=== PATIENT | male | born 1990 | race American Indian/Alaskan Native ===

== ENCOUNTER 2018-09-21 14:35 | Inpatient (IN) | payer OTHER ==
--- NOTE | 2018-09-21 15:29 | Emergency Department Report ---
Chief Complaint: Sickle Cell Crisis Stated Complaint: SICKLE CELL/CHEST PAIN/DEHYDRATION Time Seen by Provider: 09/21/18 15:26 - HPI History of Present Illness: pt presents with "sickle cell crisis" pt presents with c/o right sided CP that began two days ago feels like a sharp pain radiating to the back also right arm pain (+) mild SOB also having diarrhea x 2 days no urinary sx, no fever last sickle cell crisis 4 months ago hasnt been transfused since childhood has not taken any medications in a year for sickle cell MSE screening note: Focused history and physical exam performed. Due to findings the following was ordered: EKG, CXR, labs ED Disposition for MSE Condition: Stable
[2018-09-21 16:13] LABS: Hematocrit 33.1 % (35.5-45.6); Hemoglobin 11.5 gm/dl (11.8-15.2); Mean Corpuscular HGB Conc 35 % (32-34); Mean Corpuscular Volume 86 fl (84-94); Platelet Count 308 K/mm3 (140-440); Red Blood Count 3.88 M/mm3 (3.65-5.03)
[2018-09-21 16:15] LABS: INR 1.05 (0.87-1.13); Partial Thromboplastin Time 33.8 Sec. (24.2-36.6)
[2018-09-21 16:54] LABS: Alanine Aminotransferase 7 units/L (7-56); Albumin 4.4 g/dL (3.9-5); BUN/Creatinine Ratio 17; Blood Urea Nitrogen 10 mg/dL (9-20); Hemolysis Index 27
[2018-09-21 16:58] LABS: Band Neutrophils # (Manual) 0.2 K/mm3; Basophils % (Manual) 0 % (0.0-1.8); Total Cells Counted 100
[2018-09-21 16:59] LABS: Anisocytosis 1+; Sickle Cells 1+; Target Cells 3+
[2018-09-21 17:00] LABS: Giant Platelets Few; Hypochromasia 1+; Platelet Estimate Consistent w Auto; Poikilocytosis 1+
--- NOTE | 2018-09-21 17:07 | XRay Report ---
PROCEDURE: XR CHEST ROUTINE 2V TECHNIQUE: PA and lateral chest radiographs were obtained. HISTORY: CP, hx of sickle cell COMPARISONS: None. FINDINGS: Heart: Normal. Mediastinum/Vessels: Normal. Lungs/Pleural space: No infiltrate, effusion, or pneumothorax. Bony thorax: No acute osseous abnormality. IMPRESSION: No pulmonary infiltrates are identified. This document is electronically signed by Monisha Yoder MD., September 21 2018 05:05:43 PM ET
[2018-09-21] MEDS ORDERED: ASPIRIN PO ONE (18:24)
[2018-09-21] MEDS ORDERED: NACL 0.9% 1000 ML 1,000 ML IV ONE (18:24)
[2018-09-21] MEDS ORDERED: DILAUDID IV ONE (18:24)
--- NOTE | 2018-09-21 18:26 | Emergency Department Report ---
ED Chest Pain HPI - General Chief Complaint: Sickle Cell Crisis Stated Complaint: SICKLE CELL/CHEST PAIN/DEHYDRATION Time Seen by Provider: 09/21/18 18:16 Source: patient Mode of arrival: Ambulatory Limitations: No Limitations - History of Present Illness Initial Comments: Patient is a 27-year-old male that presents emergent with complaints of chest pain 2 days. Patient states he's been dehydrated feeling. Patient denies shortness of breath. Patient states chest pain is a 10 out of 10. Patient states the chest pain is nonradiating. Patient states that the pain is better with rest and worse with movement and exertion. Patient states he has sickle cell and he feels like he is in sickle cell crisis MD Complaint: chest pain -: Sudden Onset: during rest Pain Location: substernal, left chest Pain Radiation: none Severity: severe Severity scale (0 -10): 10 Quality: sharp Consistency: constant Improves With: rest Worsens With: exertion, movement re: nausea. denies: vomting, diaphoresis, dyspnea, sense of impending doom Other Symptoms: denies: cough, fever, syncope, rash, acid taste in mouth, leg swelling, palpitations, burping Treatments Prior to Arrival: none Aspirin use within the Past 7 Days: (0) No - Related Data On Oral Contraceptives: No Allergies Allergy/AdvReac Type Severity Reaction Status Date / Time No Known Allergies Allergy Verified 09/21/18 20:59 Heart Score - HEART Score History: Slightly suspicious EKG: Normal Age: < 45 Risk factors: No known risk factors Troponin: < normal limit HEART Score: 0 ED Review of Systems ROS: Stated complaint: SICKLE CELL/CHEST PAIN/DEHYDRATION Other details as noted in HPI Constitutional: denies: chills, fever Eyes: denies: eye pain, eye discharge, vision change ENT: denies: ear pain, throat pain Respiratory: denies: cough, shortness of breath, wheezing Cardiovascular: chest pain. denies: palpitations Endocrine: no symptoms reported Gastrointestinal: denies: abdominal pain, nausea, diarrhea Genitourinary: denies: urgency, dysuria Musculoskeletal: denies: back pain, joint swelling, arthralgia Skin: denies: rash, lesions Neurological: denies: headache, weakness, paresthesias Psychiatric: denies: anxiety, depression Hematological/Lymphatic: denies: easy bleeding, easy bruising ED Past Medical Hx - Past Medical History Previous Medical History?: Yes Hx Sickle Cell Disease: Yes Hx Asthma: Yes - Surgical History Past Surgical History?: Yes Additional Surgical History: hernia, tonsils - Family History Family history: no significant - Social History Smoking Status: Current Every Day Smoker Substance Use Type: Alcohol, Marijuana ED Physical Exam - General Limitations: No Limitations General appearance: alert, in no apparent distress - Head Head exam: Present: atraumatic, normocephalic - Eye Eye exam: Present: normal appearance, PERRL Pupils: Present: normal accommodation - ENT ENT exam: Present: mucous membranes dry - Neck Neck exam: Present: normal inspection - Respiratory Respiratory exam: Present: normal lung sounds bilaterally. Absent: respiratory distress - Cardiovascular Cardiovascular Exam: Present: regular rate, normal rhythm. Absent: systolic murmur, diastolic murmur, rubs, gallop - GI/Abdominal GI/Abdominal exam: Present: soft, normal bowel sounds. Absent: distended, t enderness, guarding - Rectal Rectal exam: Present: deferred - Extremities Exam Extremities exam: Present: normal inspection - Back Exam Back exam: Present: normal inspection - Neurological Exam Neurological exam: Present: alert, oriented X3 - Psychiatric Psychiatric exam: Present: normal affect, normal mood - Skin Skin exam: Present: warm, dry, intact, normal color. Absent: rash ED Course Vital Signs 09/21/18 09/21/18 09/21/18 15:29 18:30 18:45 Temperature 98.7 F Pulse Rate 70 Respiratory 16 15 17 Rate Blood Pressure 141/70 Blood Pressure [Left] O2 Sat by Pulse 99 Oximetry 09/21/18 09/21/18 09/21/18 18:47 19:00 19:04 Temperature Pulse Rate 77 Respiratory 17 17 Rate Blood Pressure Blood Pressure 124/47 [Left] O2 Sat by Pulse 97 94 Oximetry 09/21/18 09/21/18 09/21/18 19:10 19:20 19:30 Temperature Pulse Rate Respiratory Rate Blood Pressure 112/48 112/48 Blood Pressure [Left] O2 Sat by Pulse 94 97 94 Oximetry 09/21/18 09/21/18 09/21/18 19:40 19:50 20:00 Temperature Pulse Rate Respiratory Rate Blood Pressure 124/46 113/51 118/50 Blood Pressure [Left] O2 Sat by Pulse 94 94 93 Oximetry 04/14/19 04/14/19 04/14/19 20:10 20:20 20:30 Temperature Pulse Rate Respiratory Rate Blood Pressure 118/50 123/62 115/48 Blood Pressure [Left] O2 Sat by Pulse 95 94 95 Oximetry 09/21/18 09/21/18 09/21/18 20:42 20:50 21:00 Temperature Pulse Rate Respiratory Rate Blood Pressure 123/62 135/53 123/58 Blood Pressure [Left] O2 Sat by Pulse 86 95 92 Oximetry 09/21/18 09/21/18 09/21/18 21:10 21:20 21:30 Temperature Pulse Rate Respiratory Rate Blood Pressure 123/58 121/56 123/58 Blood Pressure [Left] O2 Sat by Pulse 97 96 99 Oximetry 09/21/18 09/21/18 09/21/18 21:40 22:00 22:04 Temperature 98.6 F Pulse Rate 54 L 50 L Respiratory 16 Rate Blood Pressure 122/50 Blood Pressure 127/73 [Left] O2 Sat by Pulse 96 99 Oximetry - Reevaluation(s) Reevaluation #1: Discussed all results with patient. Patient will be admitted to the hospitalist service. Patient agrees with plan of care and admission. 09/21/18 18:27 - Consultations Consultation #1: 09/21/18 18:28 Hospitalist consult for admission. Hospitalist admit patient. STEPHANIE score - Stephanie Score Age > 65: (0) No Aspirin use within the Past 7 Days: (0) No 3 or more CAD Risk Factors: (0) No 2 or more Angina events in past 24 hrs: (0) No Known CAD with more than 50% Stenosis: (0) No Elevated Cardiac Markers: (0) No ST Deviation Greater than 0.5mm: (0) No STEPHANIE Score: 0 ED Medical Decision Making - Lab Data Result diagrams: 09/21/18 15:36 09/21/18 15:36 - EKG Data -: EKG Interpreted by Me EKG shows normal: sinus rhythm, axis, intervals, QRS complexes, ST-T waves - EKG Data Interpretation: [facility] - Radiology Data Radiology results: report reviewed PROCEDURE: XR CHEST ROUTINE 2V TECHNIQUE: PA and lateral chest radiographs were obtained. HISTORY: CP, hx of sickle cell COMPARISONS: None. FINDINGS: Heart: Normal. Mediastinum/Vessels: Normal. Lungs/Pleural space: No infiltrate, effusion, or pneumothorax. Bony thorax: No acute osseous abnormality. IMPRESSION: No pulmonary infiltrates are identified. - Medical Decision Making Patient is a 27-year-old male that presents emergency room with complaints of dehydration, chest pain and sickle cell pain. Patient was admitted to the hospitalist service. Patient's initial labs are negative except for an elevated reticulocyte count and anemia. Patient given Dilaudid and fluids. - Differential Diagnosis chest pain. Sickle cell crisis. Critical Care Time: Yes Critical care attestation.: If time is entered above; I have spent that time in minutes in the direct care of this critically ill patient, excluding procedure time. Critical Care Time: 35 minutes ED Disposition Clinical Impression: Sickle cell crisis, Dehydration Chest pain Qualifiers: Chest pain type: unspecified Qualified Code(s): R07.9 - Chest pain, unspecified Sickle cell anemia Qualifiers: Sickle-cell associated disorders: with unspecified crisis Qualified Code(s): D57.00 - Hb-SS disease with crisis, unspecified Disposition: 09 OP ADMIT IP TO THIS HOSP Is pt being admited?: Yes Does the pt Need Aspirin: No Condition: Critical Time of Disposition: 18:30
--- NOTE | 2018-09-21 20:56 | History and Physical Report ---
History of Present Illness Date of examination: 09/21/18 Date of admission: 09/21/18 18:31 Chief complaint: Chest pain for 4 days History of present illness: 27-year-old male presents emergent with complaints of chest pain 4 days. Patient states he's been dehydrated feeling. Patient denies shortness of breath. Patient states chest pain is a 10 out of 10. Patient states the chest pain is nonradiating. Patient states that the pain is better with rest and wor se with movement and exertion. Patient states he has sickle cell and he feels like he is in sickle cell crisis Past Medical History Previous Medical History?: Yes Sickle Cell Disease: Yes Asthma: Yes Surgical History Past Surgical History?: Yes Additional Surgical History: Hernia repair, Tonsilectomy L Hip surgery Family History Family history: no significant Social History Smoking Status: Current Every Day Smoker Substance Use Type: Alcohol, Marijuana Review of systems ROS: Stated complaint: SICKLE CELL/CHEST PAIN/DEHYDRATION Other details as noted in HPI Constitutional: denies: chills, fever Eyes: denies: eye pain, eye discharge, vision change ENT: denies: ear pain, throat pain Respiratory: denies: cough, shortness of breath, wheezing Cardiovascular: chest pain. denies: palpitations Endocrine: no symptoms reported Gastrointestinal: denies: abdominal pain, nausea, diarrhea Genitourinary: denies: urgency, dysuria Musculoskeletal: denies: back pain, joint swelling, arthralgia Skin: denies: rash, lesions Neurological: denies: headache, weakness, paresthesias Psychiatric: denies: anxiety, depression Hematological/Lymphatic: denies: easy bleeding, easy bruising Medications and Allergies Allergies Allergy/AdvReac Type Severity Reaction Status Date / Time No Known Allergies Allergy Verified 09/21/18 20:59 Exam - Constitutional Vitals: Temp Pulse Resp BP Pulse Ox 98.7 F 77 17 124/47 97 09/21/18 15:29 09/21/18 18:47 09/21/18 19:00 09/21/18 18:47 09/21/18 18:47 General appearance: Present: no acute distress, well-nourished - EENT Eyes: Present: PERRL ENT: hearing intact, clear oral mucosa - Neck Neck: Present: supple, normal ROM - Respiratory Respiratory effort: normal Respiratory: bilateral: CTA - Cardiovascular Heart rate: 88 Rhythm: regular Heart Sounds: Present: S1 & S2. Absent: rub, click - Extremities Extremities: no ischemia, pulses intact, pulses symmetrical, No edema Peripheral Pulses: within normal limits - Abdominal General gastrointestinal: Present: soft, non-tender, non-distended, normal bowel sounds Male genitourinary: Present: normal - Rectal Rectal Exam: deferred - Integumentary Integumentary: Present: clear, warm, dry - Musculoskeletal Musculoskeletal: gait normal, strength equal bilaterally - Psychiatric Psychiatric: appropriate mood/affect, intact judgment & insight - Neurologic Neurologic: CNII-XII intact, moves all extremities - Allied Health Allied health notes reviewed: nursing, case management Results - Labs CBC & Chem 7: 09/21/18 15:36 09/21/18 15:36 Labs: Laboratory Last Values WBC 16.8 K/mm3 (4.5-11.0) H 09/21/18 15:36 RBC 3.88 M/mm3 (3.65-5.03) 09/21/18 15:36 Hgb 11.5 gm/dl (11.8-15.2) L 09/21/18 15:36 Hct 33.1 % (35.5-45.6) L 09/21/18 15:36 MCV 86 fl (84-94) 09/21/18 15:36 MCH 30 pg (28-32) 09/21/18 15:36 MCHC 35 % (32-34) H 09/21/18 15:36 RDW 17.0 % (13.2-15.2) H 09/21/18 15:36 Plt Count 308 K/mm3 (140-440) 09/21/18 15:36 Add Manual Diff Complete 09/21/18 15:36 Total Counted 100 09/21/18 15:36 Seg Neuts % (Manual) 75.0 % (40.0-70.0) H 09/21/18 15:36 Band Neutrophils % 1.0 % 09/21/18 15:36 Lymphocytes % (Manual) 9.0 % (13.4-35.0) L 09/21/18 15:36 Reactive Lymphs % (Man) 0 % 09/21/18 15:36 Monocytes % (Manual) 11.0 % (0.0-7.3) H 09/21/18 15:36 Eosinophils % (Manual) 4.0 % (0.0-4.3) 09/21/18 15:36 Basophils % (Manual) 0 % (0.0-1.8) 09/21/18 15:36 Metamyelocytes % 0 % 09/21/18 15:36 Myelocytes % 0 % 09/21/18 15:36 Promyelocytes % 0 % 09/21/18 15:36 Blast Cells % 0 % 09/21/18 15:36 Nucleated RBC % Not Reportable 09/21/18 15:36 Seg Neutrophils # Man 12.6 K/mm3 (1.8-7.7) H 09/21/18 15:36 Band Neutrophils # 0.2 K/mm3 09/21/18 15:36 Lymphocytes # (Manual) 1.5 K/mm3 (1.2-5.4) 09/21/18 15:36 Abs React Lymphs (Man) 0.0 K/mm3 09/21/18 15:36 Monocytes # (Manual) 1.8 K/mm3 (0.0-0.8) H 09/21/18 15:36 Eosinophils # (Manual) 0.7 K/mm3 (0.0-0.4) H 09/21/18 15:36 Basophils # (Manual) 0.0 K/mm3 (0.0-0.1) 09/21/18 15:36 Metamyelocytes # 0.0 K/mm3 09/21/18 15:36 Myelocytes # 0.0 K/mm3 09/21/18 15:36 Promyelocytes # 0.0 K/mm3 09/21/18 15:36 Blast Cells # 0.0 K/mm3 09/21/18 15:36 WBC Morphology Not Reportable 09/21/18 15:36 Hypersegmented Neuts Not Reportable 09/21/18 15:36 Hyposegmented Neuts Not Reportable 09/21/18 15:36 Hypogranular Neuts Not Reportable 09/21/18 15:36 Smudge Cells Not Reportable 09/21/18 15:36 Toxic Granulation Not Reportable 09/21/18 15:36 Toxic Vacuolation Not Reportable 09/21/18 15:36 Dohle Bodies Not Reportable 09/21/18 15:36 Pelger-Huet Anomaly Not Reportable 09/21/18 15:36 Brittany Rods Not Reportable 09/21/18 15:36 Platelet Estimate Consistent w auto 09/21/18 15:36 Clumped Platelets Not Reportable 09/21/18 15:36 Plt Clumps, EDTA Not Reportable 09/21/18 15:36 Large Platelets Not Reportable 09/21/18 15:36 Giant Platelets Few 09/21/18 15:36 Platelet Satelliting Not Reportable 09/21/18 15:36 Plt Morphology Comment Not Reportable 09/21/18 15:36 RBC Morphology Not Reportable 09/21/18 15:36 Dimorphic RBCs Not Reportable 09/21/18 15:36 Polychromasia Not Reportable 09/21/18 15:36 Hypochromasia 1+ 09/21/18 15:36 Poikilocytosis 1+ 09/21/18 15:36 Anisocytosis 1+ 09/21/18 15:36 Microcytosis Not Reportable 09/21/18 15:36 Macrocytosis Not Reportable 09/21/18 15:36 Spherocytes Not Reportable 09/21/18 15:36 Pappenheimer Bodies Not Reportable 09/21/18 15:36 Sickle Cells 1+ 09/21/18 15:36 Target Cells 3+ 09/21/18 15:36 Tear Drop Cells Not Reportable 09/21/18 15:36 Ovalocytes Not Reportable 09/21/18 15:36 Helmet Cells Not Reportable 09/21/18 15:36 [place] Bodies Not Reportable 09/21/18 15:36 [place] Rings Not Reportable 09/21/18 15:36 [place] Cells Not Reportable 09/21/18 15:36 Bite Cells Not Reportable 09/21/18 15:36 Crenated Cell Not Reportable 09/21/18 15:36 Elliptocytes Not Reportable 09/21/18 15:36 Acanthocytes (Spur) Not Reportable 09/21/18 15:36 Rouleaux Not Reportable 09/21/18 15:36 Hemoglobin C Crystals Not Reportable 09/21/18 15:36 Schistocytes Not Reportable 09/21/18 15:36 Malaria parasites Not Reportable 09/21/18 15:36 Percent Retic 4.00 % (0.78-2.58) H 09/21/18 15:36 [place] Bodies Not Reportable 09/21/18 15:36 Hem Pathologist Commnt No 09/21/18 15:36 PT 14.3 Sec. (12.2-14.9) 09/21/18 15:36 INR 1.05 (0.87-1.13) 09/21/18 15:36 APTT 33.8 Sec. (24.2-36.6) 09/21/18 15:36 Sodium 132 mmol/L (137-145) L 09/21/18 15:36 Potassium 4.3 mmol/L (3.6-5.0) 09/21/18 15:36 Chloride 99.1 mmol/L (98-107) 09/21/18 15:36 Carbon Dioxide 21 mmol/L (22-30) L 09/21/18 15:36 Anion Gap 16 mmol/L 09/21/18 15:36 BUN 10 mg/dL (9-20) 09/21/18 15:36 Creatinine 0.6 mg/dL (0.8-1.5) L 09/21/18 15:36 Estimated GFR > 60 ml/min 09/21/18 15:36 BUN/Creatinine Ratio 17 % 09/21/18 15:36 Glucose 103 mg/dL (75-100) H 09/21/18 15:36 Calcium 9.0 mg/dL (8.4-10.2) 09/21/18 15:36 Total Bilirubin 1.50 mg/dL (0.1-1.2) H 09/21/18 15:36 AST 16 units/L (5-40) 09/21/18 15:36 ALT 7 units/L (7-56) 09/21/18 15:36 Alkaline Phosphatase 66 units/L (35-129) 09/21/18 15:36 Lactate Dehydrogenase 243 units/L (91-180) H 09/21/18 15:36 Troponin T < 0.010 ng/mL (0.00-0.029) 09/21/18 15:36 Total Protein 7.6 g/dL (6.3-8.2) 09/21/18 15:36 Albumin 4.4 g/dL (3.9-5) 09/21/18 15:36 Albumin/Globulin Ratio 1.4 % 09/21/18 15:36 Short CBC 09/21/18 Range/Units 15:36 WBC 16.8 H (4.5-11.0) K/mm3 Hgb 11.5 L (11.8-15.2) gm/dl Hct 33.1 L (35.5-45.6) % Plt Count 308 (140-440) K/mm3 BMP 09/21/18 15:36 Sodium 132 L Potassium 4.3 Chloride 99.1 Carbon Dioxide 21 L BUN 10 Creatinine 0.6 L Glucose 103 H Calcium 9.0 Cardiac Enzymes 09/21/18 Range/Units 15:36 Troponin T < 0.010 (0.00-0.029) ng/mL Liver Function 09/21/18 Range/Units 15:36 Total Bilirubin 1.50 H (0.1-1.2) mg/dL AST 16 (5-40) units/L ALT 7 (7-56) units/L Alkaline Phosphatase 66 (35-129) units/L Albumin 4.4 (3.9-5) g/dL - Imaging and Cardiology Imaging and Cardiology: CXR No pulmonary infiltrates are identified. Assessment and Plan Advance Directives: Yes (Full code) VTE prophylaxis?: Chemical Plan of care discussed with patient/family: Yes - Patient Problems (1) Sickle cell crisis Current Visit: Yes Status: Acute Plan to address problem: Retic count 4 IV Fluids for now IV Dilaudid 1 gm q3 prn Check Retuc count No need for transfusion at this point (2) Chest pain Current Visit: Yes Status: Acute Qualifiers: Chest pain type: unspecified Qualified Code(s): R07.9 - Chest pain, unspecified Plan to address problem: Sec to SCC No Lexiscan ordered Symptomatic treatment (3) Dehydration Current Visit: Yes Status: Acute Plan to address problem: IV Fluids (4) Hyponatremia Current Visit: Yes Status: Acute Plan to address problem: IV NS for now (5) Leukocytosis Current Visit: Yes Status: Acute Qualifiers: Leukocytosis type: unspecified Qualified Code(s): D72.829 - Elevated white blood cell count, unspecified Plan to address problem: Demargination IV Ceftriaxone empirically (6) DVT prophylaxis Current Visit: Yes Status: Acute Plan to address problem: On Lovenox and GI prophylaxis
[2018-09-21] MEDS ORDERED: ZOFRAN IV PRN (20:57)
[2018-09-21] MEDS ORDERED: SODIUM CHLORIDE FLUSH SYRINGE 10 ML IV PRN (20:57)
[2018-09-21] MEDS ORDERED: TYLENOL PO PRN (20:57)
[2018-09-21] MEDS ORDERED: REGLAN IV PRN (20:57)
[2018-09-21] MEDS: DILAUDID IV PRN (21:10)
[2018-09-21] MEDS ORDERED: DILAUDID ONE (21:32)
[2018-09-21] MEDS: PEPCID IV SCH (22:20)
[2018-09-21] MEDS: SODIUM CHLORIDE FLUSH SYRINGE 10 ML IV SCH (22:20)
[2018-09-21] MEDS: D5NS 1,000 ML IV SCH (22:24)
[2018-09-22] MEDS: DILAUDID IV PRN ×4 (00:38→22:18)
[2018-09-22 04:51] LABS: Alanine Aminotransferase 9 units/L (7-56); Albumin 3.9 g/dL (3.9-5); BUN/Creatinine Ratio 18; Blood Urea Nitrogen 7 mg/dL (9-20); Calcium 8.8 mg/dL (8.4-10.2); Hemolysis Index 87
[2018-09-22 06:29] LABS: Hematocrit 32.7 % (35.5-45.6); Hemoglobin 11.5 gm/dl (11.8-15.2); Mean Corpuscular HGB Conc 35 % (32-34); Mean Corpuscular Volume 84 fl (84-94); Platelet Count 298 K/mm3 (140-440); Red Cell Distribution Width 17.1 % (13.2-15.2)
[2018-09-22 06:32] LABS: Basophils % (Manual) 0 % (0.0-1.8); Total Cells Counted 100
[2018-09-22 06:33] LABS: Target Cells 3+
[2018-09-22 06:34] LABS: Anisocytosis 1+
[2018-09-22 06:35] LABS: Platelet Estimate Consistent w Auto; Sickle Cells Few
[2018-09-22] MEDS: ROCEPHIN/NS 2 GM/100 ML 2 GM/100 ML BAG IV SCH (06:43)
[2018-09-22] MEDS: PEPCID IV SCH ×2 (09:07→22:16)
[2018-09-22] MEDS: D5NS 1,000 ML IV SCH ×2 (10:25→22:14)
--- NOTE | 2018-09-22 12:25 | Progress Note ---
Assessment and Plan Assessment and plan: Sickle cell vaso-occlusive crisis Admitted to [facility] iv fluids Dilaudid prn pain Chest X ray neg Will get d-dimer Chest pain due to sickle cell Leukocytosis Monitor. DVT prophylaxis with Lovenox D-dimer elevated. CT Angio chest done. Likely atelectasis, but less likely pneumonia Obtain Blood cultures, start azithromycin Fever of 100.2, low grade Blood culture Full code status. History Interval history: Chest pain , right sided Hospitalist Physical - Physical exam Narrative exam: Gen: Not in acute distress, lying in bed HEENT: Normocephalic, atraumatic Neck: supple, no JVD Heart: S1 and S2 reg, no murmurs, rubs or gallop Lungs: Clear, no crackles Abd: soft, non tender, non distended, normal BS Ext: No edema, no clubbing, no cyanosis, Musculosk: tender lower back Neuro: AAO x 3, no focal signs, moves all ext Psych:Normal mood - Constitutional Vitals: Temp Pulse Resp BP Pulse Ox 98.4 F 69 20 121/54 100 09/22/18 11:17 09/22/18 11:16 09/22/18 11:15 09/22/18 11:15 09/22/18 11:15 General appearance: Present: no acute distress, well-nourished Results - Labs CBC & Chem 7: 09/22/18 03:31 09/22/18 03:31 Labs: Laboratory Last Values WBC 18.3 K/mm3 (4.5-11.0) H 09/22/18 03:31 RBC 3.90 M/mm3 (3.65-5.03) 09/22/18 03:31 Hgb 11.5 gm/dl (11.8-15.2) L 09/22/18 03:31 Hct 32.7 % (35.5-45.6) L 09/22/18 03:31 MCV 84 fl (84-94) 09/22/18 03:31 MCH 29 pg (28-32) 09/22/18 03:31 MCHC 35 % (32-34) H 09/22/18 03:31 RDW 17.1 % (13.2-15.2) H 09/22/18 03:31 Plt Count 298 K/mm3 (140-440) 09/22/18 03:31 Add Manual Diff Complete 09/22/18 03:31 Total Counted 100 09/22/18 03:31 Seg Neuts % (Manual) 78.0 % (40.0-70.0) H 09/22/18 03:31 Band Neutrophils % 0 % 09/22/18 03:31 Lymphocytes % (Manual) 7.0 % (13.4-35.0) L 09/22/18 03:31 Reactive Lymphs % (Man) 0 % 09/22/18 03:31 Monocytes % (Manual) 11.0 % (0.0-7.3) H 09/22/18 03:31 Eosinophils % (Manual) 4.0 % (0.0-4.3) 09/22/18 03:31 Basophils % (Manual) 0 % (0.0-1.8) 09/22/18 03:31 Metamyelocytes % 0 % 09/22/18 03:31 Myelocytes % 0 % 09/22/18 03:31 Promyelocytes % 0 % 09/22/18 03:31 Blast Cells % 0 % 09/22/18 03:31 Nucleated RBC % Not Reportable 09/22/18 03:31 Seg Neutrophils # Man 14.3 K/mm3 (1.8-7.7) H 09/22/18 03:31 Band Neutrophils # 0.0 K/mm3 09/22/18 03:31 Lymphocytes # (Manual) 1.3 K/mm3 (1.2-5.4) 09/22/18 03:31 Abs React Lymphs (Man) 0.0 K/mm3 09/22/18 03:31 Monocytes # (Manual) 2.0 K/mm3 (0.0-0.8) H 09/22/18 03:31 Eosinophils # (Manual) 0.7 K/mm3 (0.0-0.4) H 09/22/18 03:31 Basophils # (Manual) 0.0 K/mm3 (0.0-0.1) 09/22/18 03:31 Metamyelocytes # 0.0 K/mm3 09/22/18 03:31 Myelocytes # 0.0 K/mm3 09/22/18 03:31 Promyelocytes # 0.0 K/mm3 09/22/18 03:31 Blast Cells # 0.0 K/mm3 09/22/18 03:31 WBC Morphology Not Reportable 09/22/18 03:31 Hypersegmented Neuts Not Reportable 09/22/18 03:31 Hyposegmented Neuts Not Reportable 09/22/18 03:31 Hypogranular Neuts Not Reportable 09/22/18 03:31 Smudge Cells Not Reportable 09/22/18 03:31 Toxic Granulation Not Reportable 09/22/18 03:31 Toxic Vacuolation Not Reportable 09/22/18 03:31 Dohle Bodies Not Reportable 09/22/18 03:31 Pelger-Huet Anomaly Not Reportable 09/22/18 03:31 Brittany Rods Not Reportable 09/22/18 03:31 Platelet Estimate Consistent w auto 09/22/18 03:31 Clumped Platelets Not Reportable 09/22/18 03:31 Plt Clumps, EDTA Not Reportable 09/22/18 03:31 Large Platelets Not Reportable 09/22/18 03:31 Giant Platelets Not Reportable 09/22/18 03:31 Platelet Satelliting Not Reportable 09/22/18 03:31 Plt Morphology Comment Not Reportable 09/22/18 03:31 RBC Morphology Not Reportable 09/22/18 03:31 Dimorphic RBCs Not Reportable 09/22/18 03:31 Polychromasia Not Reportable 09/22/18 03:31 Hypochromasia Not Reportable 09/22/18 03:31 Poikilocytosis Not Reportable 09/22/18 03:31 Anisocytosis 1+ 09/22/18 03:31 Microcytosis Not Reportable 09/22/18 03:31 Macrocytosis Not Reportable 09/22/18 03:31 Spherocytes Not Reportable 09/22/18 03:31 Pappenheimer Bodies Not Reportable 09/22/18 03:31 Sickle Cells Few 09/22/18 03:31 Target Cells 3+ 09/22/18 03:31 Tear Drop Cells Not Reportable 09/22/18 03:31 Ovalocytes Not Reportable 09/22/18 03:31 Helmet Cells Not Reportable 09/22/18 03:31 [place] Bodies Not Reportable 09/22/18 03:31 [place] Rings Not Reportable 09/22/18 03:31 [place] Cells Not Reportable 09/22/18 03:31 Bite Cells Not Reportable 09/22/18 03:31 Crenated Cell Not Reportable 09/22/18 03:31 Elliptocytes Not Reportable 09/22/18 03:31 Acanthocytes (Spur) Not Reportable 09/22/18 03:31 Rouleaux Not Reportable 09/22/18 03:31 Hemoglobin C Crystals Not Reportable 09/22/18 03:31 Schistocytes Not Reportable 09/22/18 03:31 Malaria parasites Not Reportable 09/22/18 03:31 Percent Retic 3.52 % (0.78-2.58) H 09/22/18 03:31 [place] Bodies Not Reportable 09/22/18 03:31 Hem Pathologist Commnt No 09/22/18 03:31 PT 14.3 Sec. (12.2-14.9) 09/21/18 15:36 INR 1.05 (0.87-1.13) 09/21/18 15:36 APTT 33.8 Sec. (24.2-36.6) 09/21/18 15:36 D-Dimer 743.92 ng/mlDDU (0-234) H 09/22/18 09:47 Sodium 136 mmol/L (137-145) L 09/22/18 03:31 Potassium 4.9 mmol/L (3.6-5.0) 09/22/18 03:31 Chloride 102.2 mmol/L (98-107) 09/22/18 03:31 Carbon Dioxide 22 mmol/L (22-30) 09/22/18 03:31 Anion Gap 17 mmol/L 09/22/18 03:31 BUN 7 mg/dL (9-20) L 09/22/18 03:31 Creatinine 0.4 mg/dL (0.8-1.5) L 09/22/18 03:31 Estimated GFR > 60 ml/min 09/22/18 03:31 BUN/Creatinine Ratio 18 % 09/22/18 03:31 Glucose 111 mg/dL (75-100) H 09/22/18 03:31 Calcium 8.8 mg/dL (8.4-10.2) 09/22/18 03:31 Total Bilirubin 1.40 mg/dL (0.1-1.2) H 09/22/18 03:31 AST 26 units/L (5-40) 09/22/18 03:31 ALT 9 units/L (7-56) 09/22/18 03:31 Alkaline Phosphatase 68 units/L (35-129) 09/22/18 03:31 Lactate Dehydrogenase 243 units/L (91-180) H 09/21/18 15:36 Troponin T < 0.010 ng/mL (0.00-0.029) 09/21/18 15:36 Total Protein 6.9 g/dL (6.3-8.2) 09/22/18 03:31 Albumin 3.9 g/dL (3.9-5) 09/22/18 03:31 Albumin/Globulin Ratio 1.3 % 09/22/18 03:31 Active Medications - Current Medications Current Medications: Generic Name Dose Route Start Last Admin Trade Name Freq PRN Reason Stop Dose Admin Acetaminophen 650 mg 09/21/18 20:57 Tylenol PO Q4H PRN Pain MILD(1-3)/Fever >100.5/CASTRO Enoxaparin Sodium 40 mg 09/22/18 22:00 Lovenox SUB-Q QDAY@2200 DAT Famotidine 20 mg 09/21/18 22:00 09/22/18 09:07 Pepcid IV 20 mg BID DAT Administration Hydromorphone HCl 1 mg 09/21/18 20:57 09/22/18 08:45 Dilaudid IV 1 mg Q3H PRN Administration Pain , Severe (7-10) Dextrose/Sodium Chloride 1,000 mls @ 125 mls/hr 09/21/18 21:00 09/22/18 10:25 D5ns IV 125 mls/hr DIRECT DAT Administration Ceftriaxone Sodium 2 gm in 100 mls @ 200 mls/hr 09/22/18 06:00 09/22/18 06:43 Rocephin/Ns 2 Gm/100 Ml IV 200 mls/hr Q24HR@0600 DAT Administration Protocol Metoclopramide HCl 10 mg 09/21/18 20:57 Reglan IV Q6H PRN Nausea And Vomiting Ondansetron HCl 4 mg 09/21/18 20:57 Zofran IV Q8H PRN Nausea And Vomiting Oxycodone/Acetaminophen 1 tab 09/21/18 20:57 Percocet 5/325 PO Q6H PRN Pain, Moderate (4-6) Sodium Chloride 10 ml 09/21/18 22:00 09/21/18 22:20 Sodium Chloride Flush Syringe 10 Ml IV 10 ml BID DAT Administration Sodium Chloride 10 ml 09/21/18 20:57 09/22/18 00:39 Sodium Chloride Flush Syringe 10 Ml IV 10 ml PRN PRN Administration LINE FLUSH
--- NOTE | 2018-09-22 15:07 | Cat Scan Report ---
CTA CHEST: HISTORY: chest pain. COMPARISON: none. TECHNIQUE: Helical CT in 1.25mm intervals following IV contrast. Pulmonary embolus protocol. Sagittal and coronal reformatted images. Rotational MIP images. FINDINGS: Contrast bolus is satisfactory. No pulmonary embolus is identified. Thyroid gland: Normal. Tracheobronchial tree: Normal. Esophagus: Normal. Heart: Normal. Pericardium: Normal. Mediastinum: Normal. Lung Khan: Minimal subpleural atelectatic changes or infiltrate is identified in the posterior right lower lobe. Favor atelectatic changes. The remainder of the lung parenchyma is within normal limits. Pleural Spaces: Trace right pleural effusion. Musculoskeletal: Normal. IMPRESSION: No evidence for pulmonary embolus. Trace right pleural effusion and minimal subpleural atelectasis in the right lower lobe.
[2018-09-22] MEDS: PERCOCET 5/325 PO PRN (19:07)
[2018-09-22] MEDS: SODIUM CHLORIDE FLUSH SYRINGE 10 ML IV SCH ×2 (19:10→22:16)
[2018-09-22] MEDS: LOVENOX SUB-Q SCH (22:16)
[2018-09-23] MEDS: ZITHROMAX 500 MG in NACL 0.9% 250ML 250 ML IV SCH ×2 (00:49→21:59)
[2018-09-23] MEDS: PERCOCET 5/325 PO PRN (01:52)
[2018-09-23 03:38] LABS: Hematocrit 30.5 % (35.5-45.6); Hemoglobin 10.8 gm/dl (11.8-15.2); Mean Corpuscular HGB Conc 36 % (32-34); Mean Corpuscular Volume 83 fl (84-94); Platelet Count 289 K/mm3 (140-440); Red Blood Count 3.67 M/mm3 (3.65-5.03); Red Cell Distribution Width 16.9 % (13.2-15.2)
[2018-09-23 03:57] LABS: BUN/Creatinine Ratio 12; Blood Urea Nitrogen 6 mg/dL (9-20); Calcium 8.8 mg/dL (8.4-10.2); Hemolysis Index 4
[2018-09-23] MEDS: ROCEPHIN/NS 2 GM/100 ML 2 GM/100 ML BAG IV SCH (06:00)
[2018-09-23] MEDS: DILAUDID IV PRN ×3 (09:22→21:54)
[2018-09-23] MEDS: PEPCID IV SCH (09:22)
[2018-09-23] MEDS: SODIUM CHLORIDE FLUSH SYRINGE 10 ML IV SCH ×2 (12:47→22:01)
--- NOTE | 2018-09-23 14:05 | Discharge Summary ---
Providers - Providers Date of Admission: 09/21/18 18:31 Date of discharge: 09/23/18 Attending physician: AMANDA OLVERA MD Hospitalization Reason for admission: Sickle Cell Crisis Condition: Stable Hospital course: 27-year-old male with known history of sickle cell presented to ED on 09/21 with complaints of nonradating chest pain 4 days, SOB, and dehydration. He was admitted and treated for Sickle Cell crisis. Pt states that he is feeling better and is ready to be discharged. His mother is at the bedside. Discussed discharge planning with patient and his mother and they are both in agreement. Pt plans on following up with [facility] [employer] post discharge. DDX Sickle cell vaso-occlusive crisis Chest pain due to sickle cell Leukocytosis Hyponatremia Disposition: DC- TO HOME OR SELFCARE Core Measure Documentation - Palliative Care Palliative Care/ Comfort Measures: Not Applicable - Core Measures Any of the following diagnoses?: none - VTE Discharge Requirements Deep Vein Thrombosis/Pulmonary Embolism Present on Admission: No Contraindication No Overlap Therapy order at DC: Not Indicated Exam - Constitutional Vitals: Temp Pulse Resp BP Pulse Ox 98.2 F 74 18 123/61 100 09/23/18 12:33 09/23/18 12:32 09/23/18 12:32 09/23/18 12:32 09/23/18 12:32 General appearance: Present: no acute distress - EENT Eyes: Present: PERRL, EOM intact ENT: hearing intact - Neck Neck: Present: supple, normal ROM - Respiratory Respiratory effort: normal Respiratory: bilateral: CTA - Cardiovascular Rhythm: regular Heart Sounds: Present: S1 & S2 - Extremities Extremities: pulses intact, No edema Extremity abnormal: deformity Peripheral Pulses: within normal limits - Abdominal General gastrointestinal: Present: soft, non-tender Male genitourinary: Present: deferred - Rectal Rectal Exam: deferred - Integumentary Integumentary: Present: warm, dry - Musculoskeletal Musculoskeletal: strength equal bilaterally - Psychiatric Psychiatric: appropriate mood/affect - Neurologic Neurologic: CNII-XII intact Plan Follow up with: [facility] [Other] - 3-5 Days Prescriptions: Naproxen 500 mg PO QDAY PRN 3 Days tablet PRN Reason: Pain, Moderate (4-6) oxyCODONE /ACETAMINOPHEN [Percocet 5/325] 1 tab PO Q6HR PRN 3 Days #12 tablet PRN Reason: Pain
[2018-09-23] MEDS: D5NS 1,000 ML IV SCH (21:58)
[2018-09-23] MEDS: PEPCID PO SCH (22:01)
[2018-09-23] MEDS: LOVENOX SUB-Q SCH (22:01)
[2018-09-24] MEDS: DILAUDID IV PRN ×2 (02:20→09:21)
[2018-09-24] MEDS: ROCEPHIN/NS 2 GM/100 ML 2 GM/100 ML BAG IV SCH (05:54)
[2018-09-24] MEDS: PERCOCET 5/325 PO PRN (05:54)
[2018-09-24] MEDS: PEPCID PO SCH (09:19)
[2018-09-24] MEDS: SODIUM CHLORIDE FLUSH SYRINGE 10 ML IV SCH (09:22)
--- NOTE | 2018-09-24 10:08 | XRay Report ---
ROUTINE CHEST, TWO VIEWS: HISTORY: Low-grade fever. The trachea, heart, mediastinal contour, lung champagne and bony thorax are unremarkable. IMPRESSION: Unremarkable chest x-ray. No change since 09/21/18.
--- NOTE | 2018-09-24 10:45 | Progress Note ---
<ROSALINO JAUREGUI - Last Filed: 09/24/18 11:04> Assessment and Plan Assessment and plan: 27-year-old male with known history of sickle cell presented to ED on 09/21 with complaints of nonradating chest pain 4 days, SOB, and dehydration. He was admitted and treated for Sickle Cell crisis. Pt plans on following up with Employee Counselor at [facility] post discharge. Sickle cell vaso-occlusive crisis IVF discontinued Continue oral hydration Continue pain management Chest pain likely secondary to sickle cell Continue pain management Leukocytosis Tmax 99.9 WBC on admission 16.8 WBC this am 15.4 CXR unrevealing for acute cardiopulmonary abnormalities CTA Chest on 09/22 showed no evidence for pulmonary embolus BC x 2- NGTD MRSA Culture- negative Received Azithromycin ppx Hyponatremia- resolved Na on 09/23 135 Disposition Plan: discharge to home History Interval history: Pt was kept overnight for suspicion of low grade temp. 2- View CXR was done this morning and was unrevealing. There was no significant changes when compared to previous CXR. Hospitalist Physical - Physical exam Narrative exam: General appearance: Present: no acute distress - EENT Eyes: Present: PERRL, EOM intact ENT: hearing intact - Neck Neck: Present: supple, normal ROM - Respiratory Respiratory effort: normal Respiratory: bilateral: CTA - Cardiovascular Rhythm: regular Heart Sounds: Present: S1 & S2 - Extremities Extremities: pulses intact, No edema Extremity abnormal: deformity Peripheral Pulses: within normal limits - Abdominal General gastrointestinal: Present: soft, non-tender Male genitourinary: Present: deferred - Rectal Rectal Exam: deferred - Integumentary Integumentary: Present: warm, dry - Musculoskeletal Musculoskeletal: strength equal bilaterally - Psychiatric Psychiatric: appropriate mood/affect - Neurologic Neurologic: CNII-XII intact - Constitutional Vitals: Temp Pulse Resp BP Pulse Ox 98.7 F 55 L 16 106/39 99 09/24/18 07:57 09/24/18 08:29 09/24/18 07:57 09/24/18 07:57 09/24/18 07:57 General appearance: Present: no acute distress Results - Labs CBC & Chem 7: 09/23/18 03:24 09/23/18 03:24 Labs: Laboratory Last Values WBC 15.4 K/mm3 (4.5-11.0) H 09/23/18 03:24 RBC 3.67 M/mm3 (3.65-5.03) 09/23/18 03:24 Hgb 10.8 gm/dl (11.8-15.2) L 09/23/18 03:24 Hct 30.5 % (35.5-45.6) L 09/23/18 03:24 MCV 83 fl (84-94) L 09/23/18 03:24 MCH 30 pg (28-32) 09/23/18 03:24 MCHC 36 % (32-34) H 09/23/18 03:24 RDW 16.9 % (13.2-15.2) H 09/23/18 03:24 Plt Count 289 K/mm3 (140-440) 09/23/18 03:24 Add Manual Diff Complete 09/22/18 03:31 Total Counted 100 09/22/18 03:31 Seg Neuts % (Manual) 78.0 % (40.0-70.0) H 09/22/18 03:31 Band Neutrophils % 0 % 09/22/18 03:31 Lymphocytes % (Manual) 7.0 % (13.4-35.0) L 09/22/18 03:31 Reactive Lymphs % (Man) 0 % 09/22/18 03:31 Monocytes % (Manual) 11.0 % (0.0-7.3) H 09/22/18 03:31 Eosinophils % (Manual) 4.0 % (0.0-4.3) 09/22/18 03:31 Basophils % (Manual) 0 % (0.0-1.8) 09/22/18 03:31 Metamyelocytes % 0 % 09/22/18 03:31 Myelocytes % 0 % 09/22/18 03:31 Promyelocytes % 0 % 09/22/18 03:31 Blast Cells % 0 % 09/22/18 03:31 Nucleated RBC % Not Reportable 09/22/18 03:31 Seg Neutrophils # Man 14.3 K/mm3 (1.8-7.7) H 09/22/18 03:31 Band Neutrophils # 0.0 K/mm3 09/22/18 03:31 Lymphocytes # (Manual) 1.3 K/mm3 (1.2-5.4) 09/22/18 03:31 Abs React Lymphs (Man) 0.0 K/mm3 09/22/18 03:31 Monocytes # (Manual) 2.0 K/mm3 (0.0-0.8) H 09/22/18 03:31 Eosinophils # (Manual) 0.7 K/mm3 (0.0-0.4) H 09/22/18 03:31 Basophils # (Manual) 0.0 K/mm3 (0.0-0.1) 09/22/18 03:31 Metamyelocytes # 0.0 K/mm3 09/22/18 03:31 Myelocytes # 0.0 K/mm3 09/22/18 03:31 Promyelocytes # 0.0 K/mm3 09/22/18 03:31 Blast Cells # 0.0 K/mm3 09/22/18 03:31 WBC Morphology Not Reportable 09/22/18 03:31 Hypersegmented Neuts Not Reportable 09/22/18 03:31 Hyposegmented Neuts Not Reportable 09/22/18 03:31 Hypogranular Neuts Not Reportable 09/22/18 03:31 Smudge Cells Not Reportable 09/22/18 03:31 Toxic Granulation Not Reportable 09/22/18 03:31 Toxic Vacuolation Not Reportable 09/22/18 03:31 Dohle Bodies Not Reportable 09/22/18 03:31 Pelger-Huet Anomaly Not Reportable 09/22/18 03:31 Brittany Rods Not Reportable 09/22/18 03:31 Platelet Estimate Consistent w auto 09/22/18 03:31 Clumped Platelets Not Reportable 09/22/18 03:31 Plt Clumps, EDTA Not Reportable 09/22/18 03:31 Large Platelets Not Reportable 09/22/18 03:31 Giant Platelets Not Reportable 09/22/18 03:31 Platelet Satelliting Not Reportable 09/22/18 03:31 Plt Morphology Comment Not Reportable 09/22/18 03:31 RBC Morphology Not Reportable 09/22/18 03:31 Dimorphic RBCs Not Reportable 09/22/18 03:31 Polychromasia Not Reportable 09/22/18 03:31 Hypochromasia Not Reportable 09/22/18 03:31 Poikilocytosis Not Reportable 09/22/18 03:31 Anisocytosis 1+ 09/22/18 03:31 Microcytosis Not Reportable 09/22/18 03:31 Macrocytosis Not Reportable 09/22/18 03:31 Spherocytes Not Reportable 09/22/18 03:31 Pappenheimer Bodies Not Reportable 09/22/18 03:31 Sickle Cells Few 09/22/18 03:31 Target Cells 3+ 09/22/18 03:31 Tear Drop Cells Not Reportable 09/22/18 03:31 Ovalocytes Not Reportable 09/22/18 03:31 Helmet Cells Not Reportable 09/22/18 03:31 [place] Bodies Not Reportable 09/22/18 03:31 [place] Rings Not Reportable 09/22/18 03:31 [place] Cells Not Reportable 09/22/18 03:31 Bite Cells Not Reportable 09/22/18 03:31 Crenated Cell Not Reportable 09/22/18 03:31 Elliptocytes Not Reportable 09/22/18 03:31 Acanthocytes (Spur) Not Reportable 09/22/18 03:31 Rouleaux Not Reportable 09/22/18 03:31 Hemoglobin C Crystals Not Reportable 09/22/18 03:31 Schistocytes Not Reportable 09/22/18 03:31 Malaria parasites Not Reportable 09/22/18 03:31 Percent Retic 3.52 % (0.78-2.58) H 09/22/18 03:31 [place] Bodies Not Reportable 09/22/18 03:31 Hem Pathologist Commnt No 09/22/18 03:31 PT 14.3 Sec. (12.2-14.9) 09/21/18 15:36 INR 1.05 (0.87-1.13) 09/21/18 15:36 APTT 33.8 Sec. (24.2-36.6) 09/21/18 15:36 D-Dimer 743.92 ng/mlDDU (0-234) H 09/22/18 09:47 Sodium 135 mmol/L (137-145) L 09/23/18 03:24 Potassium 4.3 mmol/L (3.6-5.0) 09/23/18 03:24 Chloride 99.4 mmol/L (98-107) 09/23/18 03:24 Carbon Dioxide 24 mmol/L (22-30) 09/23/18 03:24 Anion Gap 16 mmol/L 09/23/18 03:24 BUN 6 mg/dL (9-20) L 09/23/18 03:24 Creatinine 0.5 mg/dL (0.8-1.5) L 09/23/18 03:24 Estimated GFR > 60 ml/min 09/23/18 03:24 BUN/Creatinine Ratio 12 % 09/23/18 03:24 Glucose 76 mg/dL (75-100) 09/23/18 03:24 Calcium 8.8 mg/dL (8.4-10.2) 09/23/18 03:24 Total Bilirubin 1.40 mg/dL (0.1-1.2) H 09/22/18 03:31 AST 26 units/L (5-40) 09/22/18 03:31 ALT 9 units/L (7-56) 09/22/18 03:31 Alkaline Phosphatase 68 units/L (35-129) 09/22/18 03:31 Lactate Dehydrogenase 243 units/L (91-180) H 09/21/18 15:36 Troponin T < 0.010 ng/mL (0.00-0.029) 09/21/18 15:36 Total Protein 6.9 g/dL (6.3-8.2) 09/22/18 03:31 Albumin 3.9 g/dL (3.9-5) 09/22/18 03:31 Albumin/Globulin Ratio 1.3 % 09/22/18 03:31 Active Medications - Current Medications Current Medications: Generic Name Dose Route Start Last Admin Trade Name Freq PRN Reason Stop Dose Admin Acetaminophen 650 mg 09/21/18 20:57 09/23/18 19:55 Tylenol PO 650 mg Q4H PRN Administration Pain MILD(1-3)/Fever >100.5/CASTRO Enoxaparin Sodium 40 mg 09/22/18 22:00 09/23/18 22:01 Lovenox SUB-Q 40 mg QDAY@2200 DAT Administration Famotidine 20 mg 09/23/18 22:00 09/24/18 09:19 Pepcid PO 20 mg BID DAT Administration Hydromorphone HCl 1 mg 09/21/18 20:57 09/24/18 09:21 Dilaudid IV 1 mg Q3H PRN Administration Pain , Severe (7-10) Dextrose/Sodium Chloride 1,000 mls @ 125 mls/hr 09/21/18 21:00 09/23/18 21:58 D5ns IV 125 mls/hr DIRECT DAT Administration Ceftriaxone Sodium 2 gm in 100 mls @ 200 mls/hr 09/22/18 06:00 09/24/18 05:54 Rocephin/Ns 2 Gm/100 Ml IV 200 mls/hr Q24HR@0600 DAT Administration Protocol Azithromycin 500 mg/ Sodium 250 mls @ 250 mls/hr 09/23/18 00:01 09/23/18 21:59 Chloride IV 250 mls/hr Q24HR@2200 DAT Administration Metoclopramide HCl 10 mg 09/21/18 20:57 Reglan IV Q6H PRN Nausea And Vomiting Ondansetron HCl 4 mg 09/21/18 20:57 Zofran IV Q8H PRN Nausea And Vomiting Oxycodone/Acetaminophen 1 tab 09/21/18 20:57 09/24/18 05:54 Percocet 5/325 PO 1 tab Q6H PRN Administration Pain, Moderate (4-6) Sodium Chloride 10 ml 09/21/18 22:00 09/24/18 09:22 Sodium Chloride Flush Syringe 10 Ml IV 10 ml BID DAT Administration Sodium Chloride 10 ml 09/21/18 20:57 09/22/18 00:39 Sodium Chloride Flush Syringe 10 Ml IV 10 ml PRN PRN Administration LINE FLUSH Nutrition/Malnutrition Assess - Dietary Evaluation Nutrition/Malnutrition Findings: Nutrition Notes Start: 09/22/18 15:16 Freq: Status: Active Protocol: Document 09/24/18 09:35 (Rec: 09/24/18 09:41 [facility]-[id number]) Co-Sign 09/24/18 09:35 Nutrition Notes Initial or Follow up Reassessment Other Pertinent Diagnosis Sickle cell crisis, CP, Dehydration Current Diet Regular Labs/Tests Na: 135 BUN: 6 Cr: 0.5 Pertinent Medications Reviewed Height 6 ft 3 in Weight 72.2 kg [place] Body Weight (kg) 89.09 BMI 19.8 Subjective/Other Information Patient states appetite is great. Pt reports consuming 100% of trays and 100% of ONS daily. Pt denies N/V/D and swallowing/chewing difficulties. Patient is very happy after receiving fruit with his meals. Percent of energy/protein needs met: 100%/100% Burn Absent Trauma Absent #1 Nutrition Diagnosis Inadequate oral intake As Evidenced by Signs and Symptoms pt meeting 100% of kcal and pro needs via PO and ONS intake Diagnosis Progress(for reassessment Improved documentation) Is patient on ventilator? No Is Patient Ambulatory and/or Out of Bed Yes REE-([facility]-ambulatory/OOB) [ 2310.919 NUTR.MSJOOB] Calculation Used for Recommendations [facility] Additional Notes Protein Needs: 56-70g (0.8-1g/ kg) Fluid Needs: 1 ml/kcal Nutrition Intervention Change Diet Order: Regular w/fruit each meal Add Supplement/Snack (indicate name/kcal Ensure Enlive Chocolate, /protein ) [place] BID Provides kCal: 700 Provides Protein (gm) 40 Goal #1 Meet at least 75% of calorie and protein needs via PO and ONS intakes Anticipated Discharge Needs: Regular diet Revisit per MD consult or patient Sign Off request: Additional Comments F/U: PO and ONS intakes <AMANDA OLVERA M - Last Filed: 09/26/18 23:09> Assessment and Plan Assessment and plan: I saw and evaluated the patient. I agree with the findings and the plan of care as documented in the Nurse Practitioner's~note Hospitalist Physical - Constitutional Vitals: Temp Pulse Resp BP Pulse Ox 98.7 F 55 L 16 106/39 99 09/24/18 07:57 09/24/18 08:29 09/24/18 07:57 09/24/18 07:57 09/24/18 07:57 Results - Labs CBC & Chem 7: 09/23/18 03:24 09/23/18 03:24 Labs: Laboratory Last Values WBC 15.4 K/mm3 (4.5-11.0) H 09/23/18 03:24 RBC 3.67 M/mm3 (3.65-5.03) 09/23/18 03:24 Hgb 10.8 gm/dl (11.8-15.2) L 09/23/18 03:24 Hct 30.5 % (35.5-45.6) L 09/23/18 03:24 MCV 83 fl (84-94) L 09/23/18 03:24 MCH 30 pg (28-32) 09/23/18 03:24 MCHC 36 % (32-34) H 09/23/18 03:24 RDW 16.9 % (13.2-15.2) H 09/23/18 03:24 Plt Count 289 K/mm3 (140-440) 09/23/18 03:24 Add Manual Diff Complete 09/22/18 03:31 Total Counted 100 09/22/18 03:31 Seg Neuts % (Manual) 78.0 % (40.0-70.0) H 09/22/18 03:31 Band Neutrophils % 0 % 09/22/18 03:31 Lymphocytes % (Manual) 7.0 % (13.4-35.0) L 09/22/18 03:31 Reactive Lymphs % (Man) 0 % 09/22/18 03:31 Monocytes % (Manual) 11.0 % (0.0-7.3) H 09/22/18 03:31 Eosinophils % (Manual) 4.0 % (0.0-4.3) 09/22/18 03:31 Basophils % (Manual) 0 % (0.0-1.8) 09/22/18 03:31 Metamyelocytes % 0 % 09/22/18 03:31 Myelocytes % 0 % 09/22/18 03:31 Promyelocytes % 0 % 09/22/18 03:31 Blast Cells % 0 % 09/22/18 03:31 Nucleated RBC % Not Reportable 09/22/18 03:31 Seg Neutrophils # Man 14.3 K/mm3 (1.8-7.7) H 09/22/18 03:31 Band Neutrophils # 0.0 K/mm3 09/22/18 03:31 Lymphocytes # (Manual) 1.3 K/mm3 (1.2-5.4) 09/22/18 03:31 Abs React Lymphs (Man) 0.0 K/mm3 09/22/18 03:31 Monocytes # (Manual) 2.0 K/mm3 (0.0-0.8) H 09/22/18 03:31 Eosinophils # (Manual) 0.7 K/mm3 (0.0-0.4) H 09/22/18 03:31 Basophils # (Manual) 0.0 K/mm3 (0.0-0.1) 09/22/18 03:31 Metamyelocytes # 0.0 K/mm3 09/22/18 03:31 Myelocytes # 0.0 K/mm3 09/22/18 03:31 Promyelocytes # 0.0 K/mm3 09/22/18 03:31 Blast Cells # 0.0 K/mm3 09/22/18 03:31 WBC Morphology Not Reportable 09/22/18 03:31 Hypersegmented Neuts Not Reportable 09/22/18 03:31 Hyposegmented Neuts Not Reportable 09/22/18 03:31 Hypogranular Neuts Not Reportable 09/22/18 03:31 Smudge Cells Not Reportable 09/22/18 03:31 Toxic Granulation Not Reportable 09/22/18 03:31 Toxic Vacuolation Not Reportable 09/22/18 03:31 Dohle Bodies Not Reportable 09/22/18 03:31 Pelger-[place]uet Anomaly Not Reportable 09/22/18 03:31 Brittany Rods Not Reportable 09/22/18 03:31 Platelet Estimate Consistent w auto 09/22/18 03:31 Clumped Platelets Not Reportable 09/22/18 03:31 Plt Clumps, EDTA Not Reportable 09/22/18 03:31 Large Platelets Not Reportable 09/22/18 03:31 Giant Platelets Not Reportable 09/22/18 03:31 Platelet Satelliting Not Reportable 09/22/18 03:31 Plt Morphology Comment Not Reportable 09/22/18 03:31 RBC Morphology Not Reportable 09/22/18 03:31 Dimorphic RBCs Not Reportable 09/22/18 03:31 Polychromasia Not Reportable 09/22/18 03:31 Hypochromasia Not Reportable 09/22/18 03:31 Poikilocytosis Not Reportable 09/22/18 03:31 Anisocytosis 1+ 09/22/18 03:31 Microcytosis Not Reportable 09/22/18 03:31 Macrocytosis Not Reportable 09/22/18 03:31 Spherocytes Not Reportable 09/22/18 03:31 Pappenheimer Bodies Not Reportable 09/22/18 03:31 Sickle Cells Few 09/22/18 03:31 Target Cells 3+ 09/22/18 03:31 Tear Drop Cells Not Reportable 09/22/18 03:31 Ovalocytes Not Reportable 09/22/18 03:31 Helmet Cells Not Reportable 09/22/18 03:31 [place] Bodies Not Reportable 09/22/18 03:31 [place] Rings Not Reportable 09/22/18 03:31 [place] Cells Not Reportable 09/22/18 03:31 Bite Cells Not Reportable 09/22/18 03:31 Crenated Cell Not Reportable 09/22/18 03:31 Elliptocytes Not Reportable 09/22/18 03:31 Acanthocytes (Spur) Not Reportable 09/22/18 03:31 Rouleaux Not Reportable 09/22/18 03:31 Hemoglobin C Crystals Not Reportable 09/22/18 03:31 Schistocytes Not Reportable 09/22/18 03:31 Malaria parasites Not Reportable 09/22/18 03:31 Percent Retic 3.52 % (0.78-2.58) H 09/22/18 03:31 [place] Bodies Not Reportable 09/22/18 03:31 Hem Pathologist Commnt No 09/22/18 03:31 PT 14.3 Sec. (12.2-14.9) 09/21/18 15:36 INR 1.05 (0.87-1.13) 09/21/18 15:36 APTT 33.8 Sec. (24.2-36.6) 09/21/18 15:36 D-Dimer 743.92 ng/mlDDU (0-234) H 09/22/18 09:47 Sodium 135 mmol/L (137-145) L 09/23/18 03:24 Potassium 4.3 mmol/L (3.6-5.0) 09/23/18 03:24 Chloride 99.4 mmol/L (98-107) 09/23/18 03:24 Carbon Dioxide 24 mmol/L (22-30) 09/23/18 03:24 Anion Gap 16 mmol/L 09/23/18 03:24 BUN 6 mg/dL (9-20) L 09/23/18 03:24 Creatinine 0.5 mg/dL (0.8-1.5) L 09/23/18 03:24 Estimated GFR > 60 ml/min 09/23/18 03:24 BUN/Creatinine Ratio 12 % 09/23/18 03:24 Glucose 76 mg/dL (75-100) 09/23/18 03:24 Calcium 8.8 mg/dL (8.4-10.2) 09/23/18 03:24 Total Bilirubin 1.40 mg/dL (0.1-1.2) H 09/22/18 03:31 AST 26 units/L (5-40) 09/22/18 03:31 ALT 9 units/L (7-56) 09/22/18 03:31 Alkaline Phosphatase 68 units/L (35-129) 09/22/18 03:31 Lactate Dehydrogenase 243 units/L (91-180) H 09/21/18 15:36 Troponin T < 0.010 ng/mL (0.00-0.029) 09/21/18 15:36 Total Protein 6.9 g/dL (6.3-8.2) 09/22/18 03:31 Albumin 3.9 g/dL (3.9-5) 09/22/18 03:31 Albumin/Globulin Ratio 1.3 % 09/22/18 03:31 Active Medications - Current Medications Current Medications: Generic Name Dose Route Start Last Admin Trade Name Freq PRN Reason Stop Dose Admin Acetaminophen 650 mg 09/21/18 20:57 09/23/18 19:55 Tylenol PO 650 mg Q4H PRN Administration Pain MILD(1-3)/Fever >100.5/CASTRO Enoxaparin Sodium 40 mg 09/22/18 22:00 09/23/18 22:01 Lovenox SUB-Q 40 mg QDAY@2200 DAT Administration Famotidine 20 mg 09/23/18 22:00 09/24/18 09:19 Pepcid PO 20 mg BID DAT Administration Hydromorphone HCl 1 mg 09/21/18 20:57 09/24/18 09:21 Dilaudid IV 1 mg Q3H PRN Administration Pain , Severe (7-10) Dextrose/Sodium Chloride 1,000 mls @ 125 mls/hr 09/21/18 21:00 09/23/18 21:58 D5ns IV 125 mls/hr DIRECT DAT Administration Ceftriaxone Sodium 2 gm in 100 mls @ 200 mls/hr 09/22/18 06:00 09/24/18 05:54 Rocephin/Ns 2 Gm/100 Ml IV 200 mls/hr Q24HR@0600 DAT Administration Protocol Azithromycin 500 mg/ Sodium 250 mls @ 250 mls/hr 09/23/18 00:01 09/23/18 21:59 Chloride IV 250 mls/hr Q24HR@2200 DAT Administration Metoclopramide HCl 10 mg 09/21/18 20:57 Reglan IV Q6H PRN Nausea And Vomiting Ondansetron HCl 4 mg 09/21/18 20:57 Zofran IV Q8H PRN Nausea And Vomiting Oxycodone/Acetaminophen 1 tab 09/21/18 20:57 09/24/18 05:54 Percocet 5/325 PO 1 tab Q6H PRN Administration Pain, Moderate (4-6) Sodium Chloride 10 ml 09/21/18 22:00 09/24/18 09:22 Sodium Chloride Flush Syringe 10 Ml IV 10 ml BID DAT Administration Sodium Chloride 10 ml 09/21/18 20:57 09/22/18 00:39 Sodium Chloride Flush Syringe 10 Ml IV 10 ml PRN PRN Administration LINE FLUSH Nutrition/Malnutrition Assess - Dietary Evaluation Nutrition/Malnutrition Findings: Nutrition Notes Start: 09/22/18 15:16 Freq: Status: Active Protocol: Document 09/24/18 09:35 (Rec: 09/24/18 09:41 [facility]-[id number]) Co-Sign 09/24/18 09:35 Nutrition Notes Initial or Follow up Reassessment Other Pertinent Diagnosis Sickle cell crisis, CP, Dehydration Current Diet Regular Labs/Tests Na: 135 BUN: 6 Cr: 0.5 Pertinent Medications Reviewed Height 6 ft 3 in Weight 72.2 kg [place] Body Weight (kg) 89.09 BMI 19.8 Subjective/Other Information Patient states appetite is great. Pt reports consuming 100% of trays and 100% of ONS daily. Pt denies N/V/D and swallowing/chewing difficulties. Patient is very happy after receiving fruit with his meals. Percent of energy/protein needs met: 100%/100% Burn Absent Trauma Absent #1 Nutrition Diagnosis Inadequate oral intake As Evidenced by Signs and Symptoms pt meeting 100% of kcal and pro needs via PO and ONS intake Diagnosis Progress(for reassessment Improved documentation) Is patient on ventilator? No Is Patient Ambulatory and/or Out of Bed Yes REE-([place] [facility]-ambulatory/OOB) [ 3471.919 NUTR.MSJOOB] Calculation Used for Recommendations [facility] Additional Notes Protein Needs: 56-70g (0.8-1g/ kg) Fluid Needs: 1 ml/kcal Nutrition Intervention Change Diet Order: Regular w/fruit each meal Add Supplement/Snack (indicate name/kcal Ensure Enlive Chocolate, /protein ) [place] BID Provides kCal: 700 Provides Protein (gm) 40 Goal #1 Meet at least 75% of calorie and protein needs via PO and ONS intakes Anticipated Discharge Needs: Regular diet Revisit per MD consult or patient Sign Off request: Additional Comments F/U: PO and ONS intakes
[2018-09-24 12:42] VITALS: BP 115/50
== END 2018-09-24 14:02 | disposition home or self-care (01) | DRG 812 ==
LOC: ED 14:35 → 4A 18:31
PROVIDERS: ADMIT Internal Medicine; ATTEND Internal Medicine
DX: D57.1 Sickle-cell disease without crisis (principal); E87.1 Hypo-osmolality and hyponatremia; E86.0 Dehydration; D72.829 Elevated white blood cell count, unspecified; J45.909 Unspecified asthma, uncomplicated; F12.90 Cannabis use, unspecified, uncomplicated; F17.200 Nicotine dependence, unspecified, uncomplicated; Z72.89 Other problems related to lifestyle
CPT/HCPCS: 36415; 71046; 71275; 80048; 80053; 83615; 84484; 85007; 85025; 85027; 85045; 85379; 85610; 85730; 87040; 87116; 93005; 93010; 96374; 99291; 99406; G0378; J0456; J0696; J1170; J1650; J7030; J7042; J7050; Q9967

== ENCOUNTER 2020-01-28 11:21 | Emergency (ER) | payer SELFPAY ==
[2020-01-28] MEDS ORDERED: KETOROLAC 30 MG/1 ML INJ IV ONE (12:49)
[2020-01-28] MEDS ORDERED: diphenhydrAMINE 50 MG/ML VIAL IV ONE (12:49)
[2020-01-28] MEDS ORDERED: ONDANSETRON 4 MG/2 ML INJ IV ONE (12:49)
[2020-01-28] MEDS ORDERED: HYDROmorphone 1 MG/1 ML INJ IV ONE ×3 (12:49→14:46)
--- NOTE | 2020-01-28 12:58 | Emergency Department Report ---
HPI - General Chief Complaint: Sickle Cell Crisis Time Seen by Provider: 01/28/20 12:42 - HPI HPI: Room 3 The patient is a 29-year-old male present with a chief complaint of sickle cell pain crisis. The patient states over the past 2 weeks he has had intermittent pain crises. Patient states he has had 3 crises in the past 2 weeks the most recent began last night with pain in his right upper extremity and right chest. Patient states he had pleuritic pain in the right chest earlier at home but not currently. Patient denies fever or cough. Patient gives his pain a score of 8/10 ED Past Medical Hx - Past Medical History Previous Medical History?: Yes Hx Sickle Cell Disease: Yes Hx Asthma: Yes - Surgical History Past Surgical History?: Yes Additional Surgical History: hernia, tonsils - Family History Family history: no significant - Social History Smoking Status: Current Every Day Smoker (1/4 pack/day) Substance Use Type: None (Denies illicit drug use) - Medications Home Medications: Home Medications Medication Instructions Recorded Confirmed Last Taken Type Folic Acid [Folvite] 1 mg PO QDAY 09/22/18 09/22/18 Unknown History Naproxen 500 mg PO QDAY PRN 3 Days tablet 09/23/18 Unknown Rx oxyCODONE /ACETAMINOPHEN [Percocet 1 tab PO Q6HR PRN 3 Days #12 tablet 09/23/18 Unknown Rx 5/325] HYDROcodone/APAP 5-325 [[place] 1 - 2 each PO Q6HR PRN #14 tablet 01/28/20 Unknown Rx 5/325] ED Review of Systems ROS: Stated complaint: SICKLE CELL Other details as noted in HPI Constitutional: no symptoms reported Respiratory: denies: cough, SOB with exertion Cardiovascular: chest pain Endocrine: no symptoms reported Physical Exam - Physical Exam Vital Signs: Vital Signs 01/28/20 01/28/20 01/28/20 12:00 12:20 12:28 Temperature 98.1 F Pulse Rate 56 L 59 L Respiratory 18 20 Rate Blood Pressure Blood Pressure 121/50 [Right] O2 Sat by Pulse 99 90 100 Oximetry 01/28/20 01/28/20 12:30 12:33 Temperature Pulse Rate 52 L 50 L Respiratory 10 L 14 Rate Blood Pressure 131/76 Blood Pressure 131/76 [Right] O2 Sat by Pulse 100 100 Oximetry Physical Exam: GENERAL: The patient is well-developed well-nourished male lying on stretcher not appearing to be in acute distress. [] HEENT: Normocephalic. Atraumatic. Extraocular motions are intact. Patient has moist mucous membranes. NECK: Supple. Trachea midline CHEST/LUNGS: Clear to auscultation. There is no respiratory distress noted. HEART/CARDIOVASCULAR: Regular. There is no tachycardia. There is no gallop rub or murmur. 2+ right radial pulse ABDOMEN: Abdomen is soft, nontender. Patient has normal bowel sounds. There is no abdominal distention. SKIN: There is no rash. There is no edema. There is no diaphoresis. NEURO: The patient is awake, alert, and oriented. The patient is cooperative. The patient has normal speech MUSCULOSKELETAL: There is no evidence of acute injury. ED Course Vital Signs 01/28/20 01/28/20 01/28/20 12:00 12:20 12:28 Temperature 98.1 F Pulse Rate 56 L 59 L Respiratory 18 20 Rate Blood Pressure Blood Pressure 121/50 [Right] O2 Sat by Pulse 99 90 100 Oximetry 01/28/20 01/28/20 12:30 12:33 Temperature Pulse Rate 52 L 50 L Respiratory 10 L 14 Rate Blood Pressure 131/76 Blood Pressure 131/76 [Right] O2 Sat by Pulse 100 100 Oximetry ED Medical Decision Making - Lab Data Result diagrams: 01/28/20 13:22 01/28/20 13:22 Laboratory Tests 01/28/20 01/28/20 13:22 13:22 WBC 10.0 RBC 4.31 Hgb 12.3 Hct 34.6 L MCV 80 L MCH 29 MCHC 36 H RDW 20.9 H Plt Count 368 Percent Retic 5.21 H Sodium 138 Potassium 4.5 Chloride 106.3 Carbon Dioxide 20 L Anion Gap 16 BUN 8 L Creatinine 0.6 L Estimated GFR > 60 BUN/Creatinine Ratio 13 Glucose 85 Calcium 9.2 Total Creatine Kinase 138 CK-MB (CK-2) 1.4 CK-MB (CK-2) Rel Index 1.0 Troponin T < 0.010 - Radiology Data Radiology results: report reviewed (Chest x-ray, VQ scan), image reviewed (Chest x-ray, VQ scan) interpreted by me: Chest x-ray-no focal infiltrates, no pneumothorax [facility] [address] [place] [address] XRay Report Signed Patient: ROXANNE RODAS MR#: [id number] : 1990 Acct:[id number] Age/Sex: 29 / M ADM Date: 01/28/20 Loc: ED Attending Dr: Ordering Physician: NANCY OWENS Date of Service: 01/28/20 Procedure(s): XR chest 1V ap Accession Number(s): [id number] cc: NANCY OWENS Fluoro Time In Minutes: CHEST 1 VIEW 01/28/2020 12:56 PM INDICATION / CLINICAL INFORMATION: chest pain. Right upper chest pain. History of sickle cell disease. COMPARISON: 09/24/18 FINDINGS: SUPPORT DEVICES: None. HEART / MEDIASTINUM: No significant abnormality. LUNGS / PLEURA: No significant pulmonary or pleural abnormality. No pneumothorax. ADDITIONAL FINDINGS: Osseous structures appear sclerotic characteristic of history of sickle cell disease. No change. IMPRESSION: 1. No acute findings. No change. Signer Name: Bria Ontiveros MD Signed: 01/28/2020 1:15 PM Workstation Name: [id number] Transcribed By: DT Dictated By: Tres Ontiveros MD Electronically Authenticated By: Tres Ontiveros MD Signed Date/Time: 01/28/20 1315 DD/ 1314 TD/TT: [address] [address] Nuclear Medicine Report Signed Patient: ROXANNE RODAS MR#: [id number] : 1990 Acct:[id number] Age/Sex: 29 / M ADM Date: 01/28/20 Loc: ED Attending Dr: Ordering Physician: CLARK PRO MD Date of Service: 01/28/20 Procedure(s): NM perfusion only lung scan Accession Number(s): [id number] cc: CLARK PRO MD NUCLEAR MEDICINE PERFUSION ONLY LUNG SCAN HISTORY: Right upper chest pain, history of sickle cell disease TECHNIQUE: Multiple projections of the chest were obtained following injection of 4.5 mCi of technetium 99m MAA COMPARISON: AP chest performed the same day. FINDINGS: There is homogeneous d istribution of the radiotracer throughout both lungs. No segmental perfusion defect extending to the pleural surface is demonstrated. IMPRESSION: Normal perfusion scan. Very low probability of pulmonary embolus. Signer Name: Rob Silveira Jr, MD Signed: 01/28/2020 2:02 PM Workstation Name: [id number] Transcribed By: TTR Dictated By: ROB SILVEIRA JR, MD Electronically Authenticated By: ROB SILVEIRA JR, MD Signed Date/Time: 01/28/20 140 DD/ 1401 TD/TT: - Differential Diagnosis Sickle cell pain crisis, acute chest syndrome, pneumonia Critical care attestation.: If time is entered above; I have spent that time in minutes in the direct care of this critically ill patient, excluding procedure time. ED Disposition Clinical Impression: Sickle cell pain crisis Disposition: DC-01 TO HOME OR SELFCARE Is pt being admited?: No Does the pt Need Aspirin: No Condition: Stable Instructions: Sickle Cell Crisis (ED) Additional Instructions: Return to the emergency department should you develop worsening symptoms, inability to tolerate food or liquids, high fever or any other concerns Prescriptions: HYDROcodone/APAP 5-325 [[place] 5/325] 1 - 2 each PO Q6HR PRN #14 tablet PRN Reason: Pain Referrals: PRIMARY CARE, [Primary Care Provider] - 3-5 Days Time of Disposition: 14:49
[2020-01-28] MEDS ORDERED: D5W/0.2% NACL 1,000 ML IV SCH (13:00)
--- NOTE | 2020-01-28 13:20 | XRay Report ---
CHEST 1 VIEW 01/28/2020 12:56 PM INDICATION / CLINICAL INFORMATION: chest pain. Right upper chest pain. History of sickle cell disease . COMPARISON: 09/24/18 FINDINGS: SUPPORT DEVICES: None. HEART / MEDIASTINUM: No significant abnormality. LUNGS / PLEURA: No significant pulmonary or pleural abnormality. No pneumothorax. ADDITIONAL FINDINGS: Osseous structures appear sclerotic characteristic of history of sickle cell dis ease. No change. IMPRESSION: 1. No acute findings. No change. Signer Name: Bria Ontiveros MD Signed: 01/28/2020 1:15 PM Workstation Name: [id number]
[2020-01-28 13:41] LABS: Hematocrit 34.6 % (35.5-45.6); Hemoglobin 12.3 gm/dl (11.8-15.2); Mean Corpuscular HGB Conc 36 % (32-34); Mean Corpuscular Volume 80 fl (84-94); Platelet Count 368 K/mm3 (140-440); Red Blood Count 4.31 M/mm3 (3.65-5.03)
[2020-01-28 13:44] LABS: Red Cell Distribution Width 20.9 % (13.2-15.2)
[2020-01-28 14:04] LABS: Creatine Kinase MB 1.4 ng/mL (0.0-4.0)
--- NOTE | 2020-01-28 14:06 | Nuclear Medicine Report ---
NUCLEAR MEDICINE PERFUSION ONLY LUNG SCAN HISTORY: Right upper chest pain, history of sickle cell disease TECHNIQUE: Multiple projections of the chest were obtained following injection of 4.5 mCi of techneti um 99m MAA COMPARISON: AP chest performed the same day. FINDINGS: There is homogeneous distribution of the radiotracer throughout both lungs. No segmental perfusion de fect extending to the pleural surface is demonstrated. IMPRESSION: Normal perfusion scan. Very low probability of pulmonary embolus. Signer Name: Rob Silveira Jr, MD Signed: 01/28/2020 2:02 PM Workstation Name: [id number]
[2020-01-28 14:07] LABS: Blood Urea Nitrogen 8 mg/dL (9-20); Calcium 9.2 mg/dL (8.4-10.2); Hemolysis Index 16
[2020-01-28 14:10] LABS: BUN/Creatinine Ratio 13
[2020-01-28 15:01] VITALS: BP 120/63
== END 2020-01-28 14:59 | disposition home or self-care (01) ==
LOC: ED 11:21
DX: D57.00 Hb-SS disease with crisis, unspecified (principal); F17.200 Nicotine dependence, unspecified, uncomplicated; J45.909 Unspecified asthma, uncomplicated; Z79.899 Other long term (current) drug therapy; Z98.890 Other specified postprocedural states
CPT/HCPCS: 36415; 71045; 78580; 80048; 82550; 82553; 84484; 85027; 85045; 93005; 96361; 96374; 96375; 96376; 99284; A9540; J1170; J1200; J1885; J2405

== ENCOUNTER 2020-04-04 12:02 | Emergency (ER) | payer SELFPAY ==
--- NOTE | 2020-04-04 12:31 | Emergency Department Report ---
Blank Doc - Documentation Documentation: 29-year-old male that presents with left facial abscess. This initial assessment/diagnostic orders/clinical plan/treatment(s) is/are subject to change based on patient's health status, clinical progression and re- assessment by fellow clinical providers in the ED. Further treatment and workup at subsequent clinical providers discretion. Patient/guardians urged not to elope from the ED as their condition may be serious if not clinically assessed and managed. Initial orders include: 1- Patient sent to [facility] for further evaluation and treatment
[2020-04-04] MEDS ORDERED: oxyCODONE /ACETAMINOPHEN 5-325MG TAB PO ONE (14:39)
[2020-04-04] MEDS ORDERED: LIDOCAINE-MPF (1%) 10 MG/1 ML VIAL 5 ML INFILTRATI ONE (14:39)
--- NOTE | 2020-04-04 14:46 | Emergency Department Report ---
- General Chief complaint: Dental/Oral Stated complaint: MOUTH PAIN Time Seen by Provider: 04/04/20 12:29 Source: patient Mode of arrival: Ambulatory Limitations: No Limitations - History of Present Illness Initial comments: Patient is a 29-year-old male presents emergency room with complaints of an abscess to the left side of his face that began 4 days ago. He states that this morning when he woke up the swelling had increased and he had increased pain. He states that he does have a subjective fever. Patient denies any dental pain. He states that he does have a cracked tooth in that area that has been there for approximately a year. He states that he last saw a dentist a year ago and needs to have the tooth extracted. He states that this has happened in the past. He denies any drainage, vomiting, difficulty swallowing, difficulty breathing. Has a past medical history of sickle cell and asthma. He states he has not been transfused since childhood. No allergies to medications. - Related Data Home Medications Medication Instructions Recorded Confirmed Last Taken Folic Acid [Folvite] 1 mg PO QDAY 09/22/18 09/22/18 Unknown Previous Rx's Medication Instructions Recorded Last Taken Type Naproxen 500 mg PO QDAY PRN 3 Days tablet 09/23/18 Unknown Rx oxyCODONE /ACETAMINOPHEN [Percocet 1 tab PO Q6HR PRN 3 Days #12 tablet 09/23/18 Unknown Rx 5/325] HYDROcodone/APAP 5-325 [[place] 1 - 2 each PO Q6HR PRN #14 tablet 01/28/20 Unknown Rx 5/325] Clindamycin [Clindamycin CAP] 450 mg PO TID 7 Days #63 capsule 04/04/20 Unknown Rx Allergies Allergy/AdvReac Type Severity Reaction Status Date / Time No Known Allergies Allergy Verified 09/21/18 20:59 Abscess Boil HPI - HPI Chief Complaint: Dental/Oral Stated Complaint: MOUTH PAIN Time Seen by Provider: 04/04/20 12:29 Home Medications: Home Medications Medication Instructions Recorded Confirmed Last Taken Folic Acid [Folvite] 1 mg PO QDAY 09/22/18 09/22/18 Unknown Previous Rx's Medication Instructions Recorded Last Taken Type Naproxen 500 mg PO QDAY PRN 3 Days tablet 09/23/18 Unknown Rx oxyCODONE /ACETAMINOPHEN [Percocet 1 tab PO Q6HR PRN 3 Days #12 tablet 09/23/18 Unknown Rx 5/325] HYDROcodone/APAP 5-325 [[place] 1 - 2 each PO Q6HR PRN #14 tablet 01/28/20 Unknown Rx 5/325] Clindamycin [Clindamycin CAP] 450 mg PO TID 7 Days #63 capsule 04/04/20 Unknown Rx Allergies/Adverse Reactions: Allergies Allergy/AdvReac Type Severity Reaction Status Date / Time No Known Allergies Allergy Verified 09/21/18 20:59 ED Review of Systems ROS: Stated complaint: MOUTH PAIN Other details as noted in HPI Comment: All other systems reviewed and negative ED Past Medical Hx - Past Medical History Previous Medical History?: Yes Hx Sickle Cell Disease: Yes Hx Asthma: Yes - Surgical History Past Surgical History?: Yes Additional Surgical History: hernia, tonsils - Social History Smoking Status: Current Every Day Smoker (1/4 pack/day) Substance Use Type: None (Denies illicit drug use) - Medications Home Medications: Home Medications Medication Instructions Recorded Confirmed Last Taken Type Folic Acid [Folvite] 1 mg PO QDAY 09/22/18 09/22/18 Unknown History Naproxen 500 mg PO QDAY PRN 3 Days tablet 09/23/18 Unknown Rx oxyCODONE /ACETAMINOPHEN [Percocet 1 tab PO Q6HR PRN 3 Days #12 tablet 09/23/18 Unknown Rx 5/325] HYDROcodone/APAP 5-325 [[place] 1 - 2 each PO Q6HR PRN #14 tablet 01/28/20 Unknown Rx 5/325] Clindamycin [Clindamycin CAP] 450 mg PO TID 7 Days #63 capsule 04/04/20 Unknown Rx ED Physical Exam - General Limitations: No Limitations General appearance: alert, in no apparent distress - Head Head exam: Present: atraumatic, normocephalic - Eye Eye exam: Present: normal appearance - ENT ENT exam: Present: mucous membranes moist, other (multiple dental caries, there is a cracked tooth with only a small amount of remanents remaining to the left lower gumline, no tongue elevation, no trismus, no muffled voice, uvula is midline, no uvular edema or deviation) - Respiratory Respiratory exam: Present: normal lung sounds bilaterally. Absent: respiratory distress, wheezes, rales, rhonchi, stridor, chest wall tenderness, accessory muscle use, decreased breath sounds, prolonged expiratory - Cardiovascular Cardiovascular Exam: Present: regular rate, normal rhythm, normal heart sounds. Absent: systolic murmur, diastolic murmur, rubs, gallop - Neurological Exam Neurological exam: Present: alert, oriented X3 - Psychiatric Psychiatric exam: Present: normal affect, normal mood - Skin Skin exam: Present: other (4 cm area of induration and fluctuance present overlying the left mandible, there are a few small ingrown hairs present, no op ening, no drianage, no necrosis) ED Course Vital Signs 04/04/20 04/04/20 04/04/20 12:32 14:45 16:30 Temperature 99.8 F H Pulse Rate 64 75 Respiratory 18 18 16 Rate Blood Pressure 129/58 Blood Pressure 125/55 [Left] O2 Sat by Pulse 98 100 Oximetry - I & D Left Face Type of Procedure: Simple Site: left mandible Blade Size: 11 I & D Procedure: betadine prep, sterile drapes applied, sterile dressing applied Progress: Betadine prep, 5 cc of 1% lidocaine without epinephrine used anesthetic, Betadine prep again, sterile drapes applied, 11 blade used to make a 1 cm incision, copious amounts of purulent drainage expressed, blunt hemostats used to break up any loculations, irrigated with sterile saline, patient tolerated well, no complications, bleeding controlled, sterile dressing applied ED Medical Decision Making - Medical Decision Making Patient is a 29-year-old male presents emergency room with complaints of an abscess to the left side of his face that began 4 days ago. He states that this morning when he woke up the swelling had increased and he had increased pain. He states that he does have a subjective fever. Patient denies any dental pain. He states that he does have a cracked tooth in that area that has been there for approximately a year. He states that he last saw a dentist a year ago and needs to have the tooth extracted. He states that this has happened in the past. He denies any drainage, vomiting, difficulty swallowing, difficulty breathing. Has a past medical history of sickle cell and asthma. He states he has not been transfused since childhood. No allergies to medications. Vitals with mild low-grade temperature, otherwise normal. On exam: multiple dental caries, there is a cracked tooth with only a small amount of remanents remaining to the left lower gumline, no tongue elevation, no trismus, no muffled voice, uvula is midline, no uvular edema or deviation, 4 cm area of induration and fluctuance present overlying the left mandible, there are a few small ingrown hairs present, no opening, no drianage, no necrosis. Examination appears most consistent with ingrown hair instead of dental abscess. I&D performed per procedure note with copious amounts of purulent drainage expressed, no complications. Patient given prescription for clindamycin. Patient already takes pain medication at home. Advised patient Please keep area clean, dry, covered. May wash area with antibacterial soap and water and pat dry. May use warm compresses. No hot tub, no pool. Please take medication as prescribed to completion. Follow-up with a primary care doctor for reexamination. Follow-up with a dentist regarding your cavities. Return to emergency room for any new or worsening symptoms. Critical care attestation.: If time is entered above; I have spent that time in minutes in the direct care of this critically ill patient, excluding procedure time. ED Disposition Clinical Impression: Facial abscess, Dental caries Disposition: DC- TO HOME OR SELFCARE Is pt being admited?: No Does the pt Need Aspirin: No Condition: Stable Instructions: Dental Caries (ED), Abscess Incision and Drainage (ED) Additional Instructions: Please keep area clean, dry, covered. May wash area with antibacterial soap and water and pat dry. May use warm compresses. No hot tub, no pool. Please take medication as prescribed to completion. Follow-up with a primary care doctor for reexamination. Follow-up with a dentist regarding your cavities. Return to emergency room for any new or worsening symptoms. Prescriptions: Clindamycin [Clindamycin CAP] 450 mg PO TID 7 Days #63 capsule Referrals: NATALI CORADO MD [Staff Physician] - 2-3 Days [facility] [Provider Group] - 2-3 Days [facility] [Outside] - 2-3 Days Time of Disposition: 16:02 Print Language: IRISH
[2020-04-04 16:31] VITALS: BP 125/55
== END 2020-04-04 16:34 | disposition home or self-care (01) ==
LOC: ED 12:02
DX: L02.01 Cutaneous abscess of face (principal); K02.9 Dental caries, unspecified; J45.909 Unspecified asthma, uncomplicated; F17.200 Nicotine dependence, unspecified, uncomplicated; Z79.899 Other long term (current) drug therapy; Z98.890 Other specified postprocedural states
CPT/HCPCS: 99282